=== PATIENT | male | born 1980 | race Caucasian/White ===

== ENCOUNTER 2021-02-06 06:30 | Emergency (ER) | payer OTHER ==
--- OUTSIDE RECORDS SUMMARY | 2021-02-06 06:47 | XMS REPORT | Continuity of Care Document ---
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 (dilated 2-05 Method i cardiomyop cardiomyop 00:00: st athy) athy) 00 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 0-11 [facility] i systolic systolic 00:00: st and and 00 diastolic diastolic congestive congestive heart heart failure failure Essential Essential Disease Active 2016-08 [facility] hypertensi hypertensi 0-11 Me thodi on on 00:00: st 00 Type 2 Type 2 Disease Active 2016-08 [place] diabetes diabetes 0-11 Method i mellitus mellitus 00:00: st 00 Abdominal Abdominal Disease Active 2016-08 [place] pain pain 0-10 Methodi 00:00: st 00 Acute Acute Disease Active 2016-08 [place] acalculous acalculous 0-08 Me thodi cholecysti cholecysti 00:00: st tis tis 00 Allergies, Adverse Reactions, Alerts This patient has no known allergies or adverse reactions. Family History Family Member Diagnosis Comments Start Date Stop Date Source Other Colon cancer [place] Meth odist Social History Social Habit Start Date Stop Date Quantity Comments Source Tobacco use and 2019-09-11 2019-09-11 Never used [facility] ethodist exposure 00:00:00 00:00:00 Alcohol intake 2019-09-11 2019-09-11 Current drinker [place] [facility] 00:00:00 00:00:00 of alcohol (finding) Alcohol Comment 2017-05-13 2017-05-13 social [facility]qar Fernandez ethodist 00:00:00 00:00:00 Sex [birth year] At [birth year] Waqar Fernandez [facility]ist 00:00:00 00:00:00 Smoking Status Start Date Stop Date Source Never smoker Wa[facility] Method[facility] t Medications Ordered Filled Start Stop Current Ordering Indication Dosage Frequency Signature Comments Components Source Medication Medication Date Date Medication? Clinician (SIG) Name Name glimepiride 2020-0 Yes 2mg Q.5D Take 2 mg [place] (AMARYL) 2 2-06 by mouth 2 Met h[facility] MG tablet 10:06: (two) st 55 times a day. metoprolol 2020-0 Yes 50mg Q.5D Take 50 mg [place] tartrate 2-06 by mouth 2 Metho di (LOPRESSOR) 10:06: (two) st 50 mg 55 times a tablet day. digOXIN 2020-0 Yes 125ug QD Take 125 [place] (LANOXIN) 2-06 mcg by Methodi 125 mcg 10:06: mouth st tablet 55 daily. lisinopril 2020-0 Yes 5mg QD Take 5 mg [place] (PRINIVIL,Z 2-06 by mouth Meth aaliyah ESTRIL) 5 10:06: daily. st mg tablet 55 furosemide 2020-0 Yes 40mg Q.5D Take 40 mg [place] (LASIX) 40 2-06 by mouth 2 Met hodi mg tablet 10:06: (two) st 55 times a day. metFORMIN 2020-0 Yes 500mg Q.5D Take 500 [place] (GLUCOPHAGE 2-06 mg by Methodi ) 500 mg 10:06: mouth 2 st tablet 55 (two) times a day with meals. sacubitril- 2020-0 Yes 1{tbl} Q.5D Take 1 [place] valsartan 2-06 tablet by Metho di (ENTRESTO) 10:06: mouth 2 st 49-51 mg 55 (two) tablet per times a tablet day. potassium 2020-0 Yes 20meq Q.5D Take 20 [place] chloride 2-06 mEq by Methodi (K-DUR) 20 10:06: mouth 2 st MEQ CR 55 (two) tablet times a day. pantoprazol 2020-0 Yes 40mg QD Take 40 mg Zavaleta e 2-06 by mouth Methodi (PROTONIX) 10:06: daily. st 40 MG EC 55 tablet allopurinoL 2020-0 Yes 300mg QD Take 300 [place] (ZYLOPRIM) 2-06 mg by Methodi 300 MG 10:06: mouth st tablet 55 daily. metOLazone 2020-0 Yes 5mg Take 5 mg [place] (ZAROXOLYN) 2-06 by mouth Meth aaliyah 5 MG tablet 10:06: as needed. st 55 traMADol 2020-0 Yes acute pain 50mg Q8H Take 50 mg [facility]aval[place] (ULTRAM) 50 2-06 by mouth Meth aaliyah mg tablet 10:06: every 8 st 55 (eight) hours as needed for moderate pain .acute pain. Take after procedure minocycline 2020-0 Yes 100mg Q.5D Take 100 [place] (MINOCIN) 2-06 mg by Methodi 100 MG 10:06: mouth 2 st capsule 55 (two) times a day. Take 1 BID x 5 days after procedure Procedures This patient has no known procedures. Plan of Care Planned Activity Planned Date Details Comments Source Future Scheduled 2021-03-06 INFLUENZA VACCINE [place] [facility] 00:00:00 [code = INFLUENZA VACCINE] Future Scheduled 1997 Hepatitis C screening [place] [facility] Test 00:00:00 (procedure) [code = 317687908] Future Scheduled 1991 COVID-19 VACCINE (1) [facility] 00:00:00 [code = COVID-19 VACCINE (1)] Future Scheduled 1989 DIABETES: RETINAL EYE [place] [facility] 00:00:00 EXAM [code = DIABETES: RETINAL EYE EXAM] Future Scheduled 1989 DIABETIC FOOT EXAM [place] [facility] Test 00:00:00 [code = DIABETIC FOOT EXAM] Future Scheduled 1989 URINE MICROALBUMIN [place] [facility] Test 00:00:00 [code = URINE MICROALBUMIN] Encounters Start End Encounter Admission Attending Care Care Encounter Source Date/Time Date/Time Type Type Clinicians Facility Department ID 2020-02-10 2020-02-10 Telephone WALESKA Singleton [id number] 2017 00:00:00 00:00:00 Sandra [facility] [id number] [facility] [id number] 2020-02-09 2020-02-09 Laboratory Only, Pcp [facility] [id number] 09:57:53 10:12:53 Only Test PRIMARY [id number] CARE [id number] CARI [id number] 2019-09-10 2019-09-11 Outpatient BHARATH [facility] [id number] [address] [place] [address] 00:00:00 00:00:00 [facility] [address] Results This patient has no known results.
[2021-02-06 06:56] LABS: Absolute Lymphocytes (CBC) 2.1 K/uL (0.7-4.9); Basophils % 0.5 % (0-1.3); Hematocrit 46.5 % (39.6-49.0); Lymphocytes % 23.2 % (15.3-44.8); MPV 7.5 fL (7.6-11.3); RBC Red Blood Cell Count 4.94 M/uL (4.33-5.43)
[2021-02-06 07:15] LABS: Albumin 4.1 g/dL (3.4-5.0); Bilirubin Direct 0.2 mg/dL (0-0.2); Bilirubin Total 0.6 mg/dL (0.2-1.0)
[2021-02-06 07:24] LABS: Potassium 2.8 mmol/L (3.5-5.1)
[2021-02-06 08:07] LABS: Troponin (Emerg Dept Use Only) 0.02 ng/mL (0.0-0.045)
[2021-02-06] MEDS ORDERED: NS KCL 20MEQ 1,000 ML IV ONE (08:15)
[2021-02-06] MEDS ORDERED: KCL 20 MEQ/100 mL IVPB 20 MEQ/100 ML BAG IV ONE (08:15)
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
[2021-02-06] MEDS ORDERED: POTASSIUM 25 MEQ EFFERV TAB ONE (08:39)
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
[2021-02-06] MEDS ORDERED: FOLIC ACID 1 MG, MULTIVITAMINS INJ 10 ML, THIAMINE HCL 100 MG in NA CHLORIDE 0.9% 1,000 ML IV SCH (09:00)
[2021-02-06 12:28] LABS: Urine Blood Trace-lysed (Negative); Urine Glucose Negative (Negative); Urine Protein 1+ (Negative); Urine Specific Gravity <=1.005 (1.005-1.030); Urine pH 5.5 (5.0-7.0)
[2021-02-06 12:52] LABS: Barbiturates NEGATIVE (NEGATIVE); Benzodiazepines NEGATIVE (NEGATIVE); Cocaine NEGATIVE (NEGATIVE); METHAMPHETAM NEGATIVE (NEGATIVE); Methadone NEGATIVE (NEGATIVE); Opiates NEGATIVE (NEGATIVE); Phencyclidine NEGATIVE (NEGATIVE); THC Cannibis NEGATIVE (NEGATIVE)
[2021-02-06 14:20] VITALS: BP 123/50; TEMP 97.7; O2SAT 95
--- NOTE | 2021-02-07 10:31 | EKG ---
Test Date: 2021-02-06 Test Time: 09:06:10 Marketing Project Coordinator: VIDHI MEASUREMENT RESULTS: Intervals: Rate: 85 HI: 114 QRSD: 210 QT: 494 QTc: 587 Jackson: P: 74 HI: 114 QRS: 260 T: 76 INTERPRETIVE STATEMENTS: Atrial-sensed ventricular-paced rhythm Abnormal ECG Compared to ECG 07/15/2011 22:04:31 Sinus rhythm no longer present Atrial abnormality no longer present ST (T wave) deviation no longer present Prolonged QT interval no longer present Electronically Signed On 02-07-21 10:30:12 CDT by Igor Cat
== END 2021-02-06 14:10 | disposition home or self-care (01) ==
LOC: ER 06:30
DX: F10.129 Alcohol abuse with intoxication, unspecified (principal); E87.6 Hypokalemia; I51.7 Cardiomegaly; E10.65 Type 1 diabetes mellitus with hyperglycemia; V49.9XXA Car occupant (driver) (passenger) injured in unspecified traffic accident, initial encounter; Z95.0 Presence of cardiac pacemaker
CPT/HCPCS: 96365; 93005; 85025; 80048; 36415 ×2; 80320; 82565; 80076; 81003; 84484; 83690; 83880; 80307; 70450; 71250; 72125; 71260; 74177; 71045; 73552 ×2; 99284; 96366; Q9967; J3480 ×2; J3411; J7030